=== PATIENT | male | born 1960 | race Caucasian/White ===

== ENCOUNTER 2019-09-04 08:44 | Emergency (ER) | payer OTHER ==
--- NOTE | 2019-09-04 08:51 | EDM.PDOC ---
ED HPI GENERAL MEDICAL PROBLEM - General Chief Complaint: Neuro Symptoms/Deficits Stated Complaint: STROKE Time Seen by Provider: 09/04/19 08:48 Source of Information: Reports: Patient, RN, RN Notes Reviewed History Limitations: Reports: No Limitations - History of Present Illness INITIAL COMMENTS - FREE TEXT/NARRATIVE: Pt presented to the ER from home by POV with c/o waking at 0300HRS this morning with left hand numbness and weakness. Pt states he had no symptoms when he went to bed last night. Pt states that initially the thought the hand was just "asleep" for laying on it, although he cannot recall which side he had been sleeping on. He got up and let his dog out and gave sometime for the symptoms to resolve, but the weakness and numbness have persisted. He denies headache, visual changes, slurred speech, or difficulty with speech or swallowing, lower extremity numbness or motor weakness, chest pain, palpitations, fever, or loss of bowel or bladder control. Pt state he is a heavy cigarette smoker and heavy daily alcohol drinker. He last drank alcohol last night (09/03/19). Pt states his sister is paralyzed on one side from a stroke. He does not believe either of his parents had Hx of stroke. Stroke Coded called by qa internship (see RN doc. for times) Blood Glucose: 69 VS stable: pt sent immediately to CT scan Last known well: unable to determine. Pt woke with symptoms at 0300HRS. Onset: Today Onset Date: 09/04/19 Onset Time: 03:00 Duration: Constant Location: Reports: Upper Extremity, Left Quality: Reports: Other (Numbness/Tingling and weakness of left hand/wrist) Severity: Severe Improves with: Reports: None Worsens with: Reports: None Associated Symptoms: Reports: No Other Symptoms - Related Data Allergies Allergy/AdvReac Type Severity Reaction Status Date / Time No Known Allergies Allergy Verified 09/04/19 09:03 Home Meds: Home Meds . [No Known Home Meds] 09/04/19 [History] Past Medical History Respiratory History: Reports: COPD Psychiatric History: Reports: Addiction (Alcohol, Nicotine) Social & Family History - Family History Neurological: Reports: CVA (Sister paralyzed on one side from stroke.) - Tobacco Use Smoking Status *Q: Heavy Tobacco Smoker Tobacco Use Within Last Twelve Months: Cigarettes - Alcohol Use Alcohol Use History: Yes Days Per Week of Alcohol Use: 7 (self described "heavy daily drinker") Alcohol Use Frequency: Daily - Recreational Drug Use Recreational Drug Use: No - Living Situation & Occupation Occupation: Employed ED ROS GENERAL - Review of Systems Review Of Systems: Comprehensive ROS is negative, except as noted in HPI. ED EXAM, NEURO - Physical Exam Exam: See Below Exam Limited By: No Limitations General Appearance: Alert, No Apparent Distress, Thin Eye Exam: Bilateral Eye: EOMI, Normal Inspection, PERRL Ears: Normal External Exam, Hearing Grossly Normal Nose: Normal Inspection, Normal Mucosa, No Blood Throat/Mouth: Normal Inspection, Normal Lips, Normal Oropharynx, Normal Voice, No Airway Compromise Head Exam: Atraumatic, Normocephalic Neck: Normal Inspection, Supple, Non-Tender, Full Range of Motion Respiratory/Chest: No Respiratory Distress, Lungs Clear, No Accessory Muscle Use , Chest Non-Tender, Decreased Breath Sounds. No: Rales, Rhonchi, Wheezing, Stridor Cardiovascular: Normal Peripheral Pulses, Regular Rate, Rhythm, No Edema GI/Abdominal: Normal Bowel Sounds, Soft, Non-Tender, No Distention, No Abnormal Bruit, Pelvis Stable (Male) Exam: Deferred Rectal (Males) Exam: Deferred Neurological: Alert (GCS: 15), Normal Mood/Affect, Normal Dorsiflexion, CN II- XII Intact, Normal Plantar Flexion, Normal Gait, Oriented x 3, Abnormal Sensation (Decreased sensation to left hand and fingers), Abnormal Motor (Left retention specialist very weak, unable to extend left fingers or wrist.), Other (NIH Stroke Scale: 2 () Back Exam: Normal Inspection Extremities: Non-Tender, No Pedal Edema, Normal Capillary Refill Psychiatric: Normal Affect, Normal Mood Skin Exam: Warm, Dry, Intact, Normal Color, No Rash EKG INTERPRETATION EKG Date: 09/04/19 Time: 09:04 Rhythm: Other (SR) Rate (Beats/Min): 64 [place]: Normal P-Wave: Present QRS: RBBB (Incomplete RBBB) ST-T: Normal QT: Normal Comparison: NA - No Prior EKG Course - Vital Signs Last Recorded V/S: Last Vital Signs Temp 98.2 F 09/04/19 09:01 Pulse 69 09/04/19 09:01 Resp 15 09/04/19 09:01 BP 119/63 09/04/19 09:01 Pulse Ox 94 L 09/04/19 09:01 - Orders/Labs/Meds Orders: Active Orders 24 hr Category Date Time Status Blood Glucose Check, Bedside [RC] ONETIME Care 09/04/19 08:52 Active EKG 12 Lead [EKG Documentation Completion] [RC] STAT Care 09/04/19 08:52 Active NIH Stroke Scale [RC] ASDIRECTED Care 09/04/19 08:51 Active Peripheral IV Care [RC] . DIRECTED Care 09/04/19 08:52 Active Sodium Chloride 0.9% [Saline Flush] Med 09/04/19 08:52 Active 10 ml FLUSH ASDIRECTED PRN Peripheral IV Insertion Adult [OM.PC] Stat Oth 09/04/19 08:52 Ordered Medication Orders Sodium Chloride (Saline Flush) 10 ml FLUSH ASDIRECTED PRN PRN Reason: Keep Vein Open Last Admin: 09/04/19 09:00 Dose: 10 ml Labs: Laboratory Tests 09/04/19 09/04/19 09/04/19 Range/Units 09:00 09:00 09:00 WBC 2.8 L (5.0-10.0) 10^3/uL RBC 4.59 L (4.6-6.2) 10^6/uL Hgb 15.3 (14.0-18.0) g/dL Hct 43.8 (40.0-54.0) % MCV 95.4 (80-100) fL MCH 33.3 (27.0-34.0) pg MCHC 34.9 (33.0-35.0) g/dL Plt Count 86 L (150-450) 10^3/uL Neut % (Auto) 41.0 L (42.2-75.2) % Lymph % (Auto) 39.3 (20.5-50.1) % [place] % (Auto) 14.3 H (2-8) % Eos % (Auto) 4.3 H (1.0-3.0) % Baso % (Auto) 1.1 H (0.0-1.0) % PT 9.1 (9.0-12.0) SEC INR 0.9 (0.9-1.2) APTT 25.1 (22.0-34.0) SEC Sodium 139 (135-145) mmol/L Potassium 4.1 (3.6-5.0) mmol/L Chloride 104 (101-111) mmol/L Carbon Dioxide 27.0 (21.0-31.0) mmol/L Anion Gap 12.1 BUN 9 (7-18) mg/dL Creatinine 0.6 (0.6-1.3) mg/dL Est Cr Clr Drug Dosing 132.68 mL/min Estimated GFR (MDRD) > 60 BUN/Creatinine Ratio 15.00 Glucose 82 (74-105) mg/dL Calcium 9.0 (8.4-10.2) mg/dl Magnesium 1.8 (1.8-2.5) mg/dL Total Bilirubin 0.8 (0.2-1.0) mg/dL AST 58 H (10-42) IU/L ALT 49 (10-60) IU/L Alkaline Phosphatase 37 L (42-121) IU/L Total Protein 7.0 (6.7-8.2) g/dl Albumin 4.2 (3.2-5.5) g/dl Globulin 2.8 Albumin/Globulin Ratio 1.50 Urine Color (YELLOW) Urine Appearance (CLEAR) Urine pH (5.0-9.0) Ur Specific [place] (1.005-1.030) Urine Protein (NEGATIVE) Urine Glucose (UA) (NEGATIVE) Urine Ketones (NEGATIVE) Urine Occult Blood (NEGATIVE) Urine Nitrite (NEGATIVE) Urine Bilirubin (NEGATIVE) Urine Urobilinogen (0.2-1.0) mg/dL Ur Leukocyte Esterase (NEGATIVE) Urine Opiates Screen (NEGATIVE) Ur Oxycodone Screen (NEGATIVE) Urine Methadone Screen (NEGATIVE) Ur Barbiturates Screen (NEGATIVE) U Tricyclic Antidepress (NEGATIVE) Ur Phencyclidine Scrn (NEGATIVE) Ur Amphetamine Screen (NEGATIVE) U Methamphetamines Scrn (NEGATIVE) Urine MDMA Screen (NEGATIVE) U Benzodiazepines Scrn (NEGATIVE) Urine Cocaine Screen (NEGATIVE) U Marijuana (THC) Screen (NEGATIVE) Ethyl Alcohol 132 mg/dL 09/04/19 09/04/19 Range/Units 09:25 09:25 WBC (5.0-10.0) 10^3/uL RBC (4.6-6.2) 10^6/uL Hgb (14.0-18.0) g/dL Hct (40.0-54.0) % MCV (80-100) fL MCH (27.0-34.0) pg MCHC (33.0-35.0) g/dL Plt Count (150-450) 10^3/uL Neut % (Auto) (42.2-75.2) % Lymph % (Auto) (20.5-50.1) % [place] % (Auto) (2-8) % Eos % (Auto) (1.0-3.0) % Baso % (Auto) (0.0-1.0) % PT (9.0-12.0) SEC INR (0.9-1.2) APTT (22.0-34.0) SEC Sodium (135-145) mmol/L Potassium (3.6-5.0) mmol/L Chloride (101-111) mmol/L Carbon Dioxide (21.0-31.0) mmol/L Anion Gap BUN (7-18) mg/dL Creatinine (0.6-1.3) mg/dL Est Cr Clr Drug Dosing mL/min Estimated GFR (MDRD) BUN/Creatinine Ratio Glucose (74-105) mg/dL Calcium (8.4-10.2) mg/dl Magnesium (1.8-2.5) mg/dL Total Bilirubin (0.2-1.0) mg/dL AST (10-42) IU/L ALT (10-60) IU/L Alkaline Phosphatase (42-121) IU/L Total Protein (6.7-8.2) g/dl Albumin (3.2-5.5) g/dl Globulin Albumin/Globulin Ratio Urine Color Yellow (YELLOW) Urine Appearance Clear (CLEAR) Urine pH 6.0 (5.0-9.0) Ur Specific [place] 1.015 (1.005-1.030) Urine Protein Negative (NEGATIVE) Urine Glucose (UA) Negative (NEGATIVE) Urine Ketones Negative (NEGATIVE) Urine Occult Blood Negative (NEGATIVE) Urine Nitrite Negative (NEGATIVE) Urine Bilirubin Negative (NEGATIVE) Urine Urobilinogen 0.2 (0.2-1.0) mg/dL Ur Leukocyte Esterase Negative (NEGATIVE) Urine Opiates Screen Negative (NEGATIVE) Ur Oxycodone Screen Negative (NEGATIVE) Urine Methadone Screen Negative (NEGATIVE) Ur Barbiturates Screen Negative (NEGATIVE) U Tricyclic Antidepress Negative (NEGATIVE) Ur Phencyclidine Scrn Negative (NEGATIVE) Ur Amphetamine Screen Negative (NEGATIVE) U Methamphetamines Scrn Negative (NEGATIVE) Urine MDMA Screen Negative (NEGATIVE) U Benzodiazepines Scrn Negative (NEGATIVE) Urine Cocaine Screen Negative (NEGATIVE) U Marijuana (THC) Screen Positive H (NEGATIVE) Ethyl Alcohol mg/dL Meds: Medications Generic Name Dose Route Start Last Admin Trade Name Freq PRN Reason Stop Dose Admin Sodium Chloride 10 ml 09/04/19 08:52 09/04/19 09:00 Saline Flush FLUSH 10 ml ASDIRECTED PRN Administration Keep Vein Open Discontinued Medications Generic Name Dose Route Start Last Admin Trade Name Freq PRN Reason Stop Dose Admin Aspirin 324 mg 09/04/19 09:10 09/04/19 09:39 Aspirin PO 09/04/19 09:11 324 mg ONETIME ONE Administration - Radiology Interpretation Free Text/Narrative:: [facility] [place] [facility] Final Radiology Report Call: [phone] assistance Online chat: [email or web address] Name: MARCELLA ECHEVARRIA Age: 59Years M Date: 09/04/2019 SSN: -- : [id number] Study: CT HEAD WO Requesting Physician: CHARLIE LOZADA Images: 144 Addl Studies: Provided Clinical History: left upper extremity weakness Contrast: Without Contrast Medium: Contrast Amount: Contrast Method: Page 1 of 2 PROCEDURE INFORMATION: Exam: CT Head Without Contrast Exam date and time: 09/04/2019 8:55 AM Age: 59 years old Clinical indication: Weakness, extremity; Left; Additional info: Left upper extremity weakness TECHNIQUE: Imaging protocol: Computed tomography of the head without contrast. Radiation optimization: All CT scans at this facility use at least one of these dose optimization techniques: automated exposure control; mA and/or kV adjustment per patient size (includes targeted exams where dose is matched to clinical indication); or iterative reconstruction. Other technique: STROKE PROTOCOL was implemented. COMPARISON: No relevant prior studies available. FINDINGS: Brain: Prominent sulci. Patchy hypodensity of the cerebral white matter which are nonspecific but likely secondary to microangiopathic changes. Ventricles: The ventricles are prominent secondary to diffuse volume loss/ atrophy. Bones/joints: Unremarkable. No acute fracture. Sinuses: Visualized sinuses are unremarkable. No fluid levels. Mastoid air cells: Visualized mastoid air cells are well aerated. Soft tissues: Unremarkable. IMPRESSION: Chronic age related changes but no evidence of acute intracranial pathology. ASSESSMENT: ASPECTS ([place] Stroke Program Early CT Score) is 10 MARCELLA ECHEVARRIA | Final Radiology Report CONFIDENTIALITY STATEMENT This report is intended only for use by the referring physician, and only in accordance with law. If you received this in error, call [phone]. Page 2 of 2 Thank you for allowing us to participate in the care of your patient. Dictated and Authenticated by: Laura Mario MD 09/04/2019 9:07 AM Central Time ([place] & [place]) - Re-Assessments/Exams Free Text/Narrative Re-Assessment/Exam: 09/04/19 09:30 Dr. Laughlin consulted for neurology/stroke via [facility]. He advises the pt is not a candidate for TPa but should be transferred as a direct admit to the hospitalist for further stroke evaluation. Dr. Mendoza accepts the pt as a direct admit via transfer. The pt is willing to be transferred and admitted but refuses ambulance transfer due to cost. I explained the rationale for ambulance transfer, safety and expediency, and the risks of POV transfer. Pt acknowledges the risks of his choice to transfer by POV, and accepts responsibility for his actions and choice , and insists on transferring to [facility] by POV. Departure - Departure Time of Disposition: 09:55 (transfer to [facility] to Dr. Mendoza) Disposition: DC/Tfer to Acute Hospital 02 Condition: Serious, Undetermined Clinical Impression: Acute cerebrovascular accident (CVA), Chronic alcohol abuse - Discharge Information *PRESCRIPTION DRUG MONITORING PROGRAM REVIEWED*: Not Applicable *COPY OF PRESCRIPTION DRUG MONITORING REPORT IN PATIENT AMY: Not Applicable Forms: ED Department Discharge, Interfacility Transfer EMTALA Sepsis Event Note - Focused Exam Vital Signs: Vital Signs Temp Pulse Resp BP Pulse Ox 09/04/19 09:01 98.2 F 69 15 119/63 94 L Date Exam was Performed: 09/04/19 Time Exam was Performed: 09:55 - My Orders Last 24 Hours: My Active Orders 09/04/19 08:51 NIH Stroke Scale [RC] ASDIRECTED 09/04/19 08:52 Blood Glucose Check, Bedside [RC] ONETIME EKG 12 Lead [EKG Documentation Completion] [RC] STAT Peripheral IV Care [RC] . DIRECTED Sodium Chloride 0.9% [Saline Flush] 10 ml FLUSH ASDIRECTED PRN Peripheral IV Insertion Adult [OM.PC] Stat - Assessment/Plan Last 24 Hours: My Active Orders 09/04/19 08:51 NIH Stroke Scale [RC] ASDIRECTED 09/04/19 08:52 Blood Glucose Check, Bedside [RC] ONETIME EKG 12 Lead [EKG Documentation Completion] [RC] STAT Peripheral IV Care [RC] . DIRECTED Sodium Chloride 0.9% [Saline Flush] 10 ml FLUSH ASDIRECTED PRN Peripheral IV Insertion Adult [OM.PC] Stat
[2019-09-04] MEDS ORDERED: Sodium Chloride 0.9% 10 ML Syringe FLUSH PRN (08:52)
[2019-09-04] MEDS ORDERED: Aspirin 81 MG Tab.Chew PO ONE (09:10)
[2019-09-04 09:25] LABS: ANION GAP 12.1; CHLORIDE,CL 104 mmol/L (101-111); SODIUM,NA 139 mmol/L (135-145)
== END 2019-09-04 11:00 ==
LOC: DL.ED 08:44
DX: I63.9 Cerebral infarction, unspecified (principal); F10.20 Alcohol dependence, uncomplicated; J44.9 Chronic obstructive pulmonary disease, unspecified; F17.210 Nicotine dependence, cigarettes, uncomplicated; Y90.6 Blood alcohol level of 120-199 mg/100 ml
CPT/HCPCS: 36415; 70450; 80053; 80305-QW; 81003; 82962; 83735; 85025; 85610; 85730; 93005; 99285-25; A9270-GY; G0480

== ENCOUNTER 2023-02-27 08:02 | Emergency (ER) | payer OTHER, SELFPAY ==
[2023-02-27] MEDS ORDERED: Sodium Chloride 0.9% 10 ML Syringe FLUSH PRN (08:19)
[2023-02-27 08:28] LABS: BASOPHILS PERCENT AUTO 0.2 % (0.0-1.0); EOSINOPHILS PERCENT AUTO 0.7 % (1.0-3.0); HEMATOCRIT 41.8 % (40.0-54.0); LYMPHOCYTES PERCENT AUTO 11.6 % (20.5-50.1); MEAN CORPUSCULAR HEMOGLOBIN 34.1 pg (27.0-34.0); MEAN CORPUSCULAR HGB CONC 35.9 g/dL (33.0-35.0); MONOCYTES PERCENT AUTO 5.6 % (2-8); NEUTROPHILS PERCENT AUTO 81.9 % (42.2-75.2); PLATELET COUNT,PLT 66 10^3/uL (150-450)
[2023-02-27 08:46] LABS: A/G RATIO 0.9; ALBUMIN 3.4 g/dL (3.4-5.0); ANION GAP 15.9 mEq/L (7-13); BILIRUBIN TOTAL 1.1 mg/dL (0.2-1.0); BUN/CREATININE RATIO 19.7 (No establ ref range); CALCIUM 9.1 mg/dL (8.5-10.1); CREATININE 0.61 mg/dL (0.70-1.30); EST CRCL DRUG DOSING (CG) 111.17 mL/min; POTASSIUM,K 3.9 mmol/L (3.5-5.1); PROTEIN TOTAL,TP 7.3 g/dL (6.4-8.2)
[2023-02-27] MEDS ORDERED: Iopamidol 755 Mg/ML 100 ML Bottle IVPUSH ONE (09:03)
[2023-02-27 09:07] LABS: LACTIC ACID 1.4 mmol/L (0.4-2.0)
[2023-02-27 09:09] LABS: INR 0.9 (0.9-1.2)
[2023-02-27 09:10] LABS: MAGNESIUM 1.9 mg/dL (1.8-2.4)
[2023-02-27 09:25] LABS: C-REACTIVE PROTEIN 27.3 mg/dL (0.0-0.9)
[2023-02-27] MEDS ORDERED: cefTRIAXone 2 GM Vial IVPUSH ONE (09:56)
== END 2023-02-27 11:57 | disposition home or self-care (01) ==
LOC: DL.ED 08:02
DX: J18.9 Pneumonia, unspecified organism (principal); J44.9 Chronic obstructive pulmonary disease, unspecified; I10 Essential (primary) hypertension; Z86.73 Personal history of transient ischemic attack (TIA), and cerebral infarction without residual deficits; Z86.16 Personal history of COVID-19
CPT/HCPCS: 36415; 71045; 71275; 80053; 83605; 83735; 85025; 85610; 86140; 87040; 87070; 87205; 96374; 99285; J0696; Q9967; 71046; 99284; J3490

== ENCOUNTER 2023-11-30 03:26 | Emergency (ER) | payer BC, OTHER ==
[2023-11-30] MEDS: Sodium Chloride 0.9% 1,000 ML IV SCH (03:43)
[2023-11-30 03:46] LABS: BASOPHILS PERCENT AUTO 0.4 % (0.0-1.0); EOSINOPHILS PERCENT AUTO 0.9 % (1.0-3.0); HEMATOCRIT 43.9 % (40.0-54.0); HEMOGLOBIN 15.3 g/dL (14.0-18.0); LYMPHOCYTES PERCENT AUTO 15.9 % (20.5-50.1); MEAN CORPUSCULAR HEMOGLOBIN 32.6 pg (27.0-34.0); MEAN CORPUSCULAR HGB CONC 34.9 g/dL (33.0-35.0); MEAN CORPUSCULAR VOLUME 93.4 fL (80-100); MONOCYTES PERCENT AUTO 4.9 % (2-8); NEUTROPHILS PERCENT AUTO 77.9 % (42.2-75.2); PLATELET COUNT,PLT 102 10^3/uL (150-450); WHITE BLOOD CELL COUNT,WBC 7.8 10^3/uL (5.0-10.0)
[2023-11-30] MEDS: HYDROmorphone 0.5 MG/0.5 ML Syringe IVPUSH ONE ×3 (03:46→06:08)
[2023-11-30 04:07] LABS: INR 0.9 (0.9-1.2); PROTHROMBIN TIME 9.5 SEC (9.0-12.0); PTT,PARTIAL THROMBOPLSTIN TIME 25.6 SEC (22.0-34.0)
[2023-11-30 04:24] LABS: A/G RATIO 1.2; ALBUMIN 3.8 g/dL (3.4-5.0); ANION GAP 14.1 mEq/L (7-13); BILIRUBIN TOTAL 0.6 mg/dL (0.2-1.0); BUN/CREATININE RATIO 15.9 (No establ ref range); CALCIUM 8.6 mg/dL (8.5-10.1); CREATININE 0.69 mg/dL (0.70-1.30); EST CRCL DRUG DOSING (CG) 110.51 mL/min; POTASSIUM,K 4.1 mmol/L (3.5-5.1); PROTEIN TOTAL,TP 7.1 g/dL (6.4-8.2)
[2023-11-30] MEDS ORDERED: Lactated Ringers 1,000 ML IV SCH (06:15)
== END 2023-11-30 06:19 ==
LOC: DL.ED 03:26
DX: S72.001A Fracture of unspecified part of neck of right femur, initial encounter for closed fracture (principal); I10 Essential (primary) hypertension; J44.9 Chronic obstructive pulmonary disease, unspecified; F17.210 Nicotine dependence, cigarettes, uncomplicated; Z86.73 Personal history of transient ischemic attack (TIA), and cerebral infarction without residual deficits; Z86.16 Personal history of COVID-19; W19.XXXA Unspecified fall, initial encounter
CPT/HCPCS: 36415; 71045; 73700-RT; 80053; 80307; 85025; 85610; 85730; 93005; 96361; 96374; 96376; 99285; 99285-25; J1170; J7030